=== PATIENT | male | born 1965 | race American Indian/Alaskan Native ===

== ENCOUNTER 2019-07-13 07:27 | Emergency (ER) | payer SELFPAY ==
[2019-07-13] MEDS ORDERED: dexAMETHasone 20 MG/5 ML VIAL IM ONE (08:35)
[2019-07-13] MEDS ORDERED: IPRATROPIUM 0.02% NEBU 2.5 ML IH ONE (08:35)
--- NOTE | 2019-07-13 08:54 | Emergency Department Report ---
- General Chief Complaint: Upper Respiratory Infection Stated Complaint: SOB/WHEEZING/PAGE/N Time Seen by Provider: 07/13/19 08:33 Source: patient Mode of arrival: Ambulatory Limitations: No Limitations - History of Present Illness Initial Comments: This is a 54-year-old male nontoxic, well nourished in appearance, no acute signs of distress presents to the ED with c/o of productive cough, wheezing, shortness of breath, rhinorrhea, nasal congestion x4 days. Patient describes productive cough as yellow mucus production. Patient denies any sick contact. Patient denies any calf pain or calf tenderness. Patient denies any chest pain, fever, chills, nausea, vomiting, hemoptysis, numbness, tingling, headache or stiff neck. Patient stated allergies to doxycycline with past medical history of hypertension. Patient stated he did not take his medication for about a week of his Norvasc but does have refills. MD Complaint: cough, rhinorrhea, nasal congestion, other (wheezing) -: days(s) (4) Severity: mild Improves With: nothing Worsens With: nothing Associated Symptoms: rhinorrhea, nasal congestion, cough, shortness of breath. denies: fever, chills, myalgias, diaphoresis, headache, sore throat, stiff neck, chest pain, abdominal pain, nausea, vomiting, diarrhea, dysuria, rash, confusion, right sweats, weight loss, epistaxis, hoarseness, ear pain Treatments Prior to Arrival: none - Related Data Home Medications Medication Instructions Recorded Confirmed Last Taken Atenolol [Tenormin] 25 mg PO BID 02/08/15 02/08/15 02/08/15 amLODIPine [Norvasc] 5 mg PO DAILY 02/08/15 02/08/15 02/08/15 Previous Rx's Medication Instructions Recorded Last Taken Type Acetaminophen/Codeine [Tylenol #3] 1 tab PO Q6H PRN #20 tab 02/08/15 Unknown Rx Indomethacin 50 mg PO Q8H #30 capsule 02/08/15 Unknown Rx predniSONE [Deltasone] 20 mg PO BID #6 tab 02/08/15 Unknown Rx ALBUTEROL Inhaler (OR & NICU) 2 puff IH QID PRN #8.5 gram 07/13/19 Unknown Rx [ProAir HFA Inhaler] Azithromycin [Zithromax Z-BRANDON] 250 mg PO DAILY #6 tablet 07/13/19 Unknown Rx Prednisone [predniSONE 10 mg 10 mg PO .TAPER #1 tab.ds.pk 07/13/19 Unknown Rx (6-Day Pack, 21 Tabs)] Allergies Allergy/AdvReac Type Severity Reaction Status Date / Time doxycycline Allergy Rash Verified 02/08/15 15:06 ED Review of Systems ROS: Stated complaint: SOB/WHEEZING/PAGE/N Other details as noted in HPI Constitutional: denies: chills, fever Eyes: denies: eye pain, eye discharge, vision change ENT: congestion. denies: ear pain, throat pain Respiratory: cough, shortness of breath, wheezing Cardiovascular: denies: chest pain, palpitations Endocrine: no symptoms reported Gastrointestinal: denies: abdominal pain, nausea, diarrhea Genitourinary: denies: urgency, dysuria Musculoskeletal: denies: back pain, joint swelling, arthralgia Skin: denies: rash, lesions Neurological: denies: headache, weakness, paresthesias Psychiatric: denies: anxiety, depression Hematological/Lymphatic: denies: easy bleeding, easy bruising ED Past Medical Hx - Past Medical History Previous Medical History?: Yes Hx Hypertension: Yes Additional medical history: gout - Surgical History Past Surgical History?: Yes Additional Surgical History: L knee surgery 89 - Social History Smoking Status: Never Smoker - Medications Home Medications: Home Medications Medication Instructions Recorded Confirmed Last Taken Type Acetaminophen/Codeine [Tylenol #3] 1 tab PO Q6H PRN #20 tab 02/08/15 Unknown Rx Atenolol [Tenormin] 25 mg PO BID 02/08/15 02/08/15 02/08/15 History Indomethacin 50 mg PO Q8H #30 capsule 02/08/15 Unknown Rx amLODIPine [Norvasc] 5 mg PO DAILY 02/08/15 02/08/15 02/08/15 History predniSONE [Deltasone] 20 mg PO BID #6 tab 02/08/15 Unknown Rx ALBUTEROL Inhaler (OR & NICU) 2 puff IH QID PRN #8.5 gram 07/13/19 Unknown Rx [ProAir HFA Inhaler] Azithromycin [Zithromax Z-BRANDON] 250 mg PO DAILY #6 tablet 07/13/19 Unknown Rx Prednisone [predniSONE 10 mg 10 mg PO .TAPER #1 tab.ds.pk 07/13/19 Unknown Rx (6-Day Pack, 21 Tabs)] ED Physical Exam - General Limitations: No Limitations General appearance: alert, in no apparent distress - Head Head exam: Present: atraumatic, normocephalic - Eye Eye exam: Present: normal appearance - Neck Neck exam: Present: normal inspection, full ROM. Absent: tenderness, meningismus, lymphadenopathy - Respiratory Respiratory exam: Present: wheezes. Absent: respiratory distress, rales, rhonchi, stridor, chest wall tenderness, accessory muscle use, decreased breath sounds, prolonged expiratory - Cardiovascular Cardiovascular Exam: Present: regular rate, normal rhythm, normal heart sounds. Absent: bradycardia, tachycardia, irregular rhythm, systolic murmur, diastolic murmur, rubs, gallop - Extremities Exam Extremities exam: Present: full ROM - Back Exam Back exam: Present: full ROM - Neurological Exam Neurological exam: Present: alert, oriented X3, normal gait - Psychiatric Psychiatric exam: Present: normal affect, normal mood - Skin Skin exam: Present: warm, dry, intact, normal color. Absent: rash ED Course Vital Signs 07/13/19 07/13/19 08:03 09:14 Temperature 98.5 F Pulse Rate 80 Respiratory 18 Rate Blood Pressure 169/96 O2 Sat by Pulse 94 Oximetry - Reevaluation(s) Reevaluation #1: 07/13/19 09:29 Patient is speaking in full sentences with no signs of distress noted. ED Medical Decision Making - Medical Decision Making This is a 54-year-old male that presents with PNA. Patient is stable and was examined by me. Chest x-ray has been obtained and dictated by radiologist with possible PNA. Due to worsening symptoms, will be discahregd with Zpak. Patient is notified of x-ray results with no questions noted. Wells criteria negative for PE. Patient received a breathing treatment in the ER and Decadron IM and symptoms has resolved. Wheezing has subsided. Vitals stable. Patient is nonfebrile and normal heart rate. Patient was instructed Follow-up with a primary care doctor in 3-5 days or if symptoms worsen and continue return to emergency room as soon as possible. At time time of discharge, the patient does not seem toxic or ill in appearance. No acute signs of distress noted. Patient agrees to discharge treatment plan of care. No further questions noted by the patient. - Differential Diagnosis PE, bronchitis, pneumonia Critical care attestation.: If time is entered above; I have spent that time in minutes in the direct care of this critically ill patient, excluding procedure time. ED Disposition Clinical Impression: PNA (pneumonia) Qualifiers: Pneumonia type: due to unspecified organism Laterality: unspecified laterality Lung location: unspecified part of lung Qualified Code(s): J18.9 - Pneumonia, unspecified organism Disposition: - TO HOME OR SELFCARE Is pt being admited?: No Does the pt Need Aspirin: No Condition: Stable Instructions: Bacterial Pneumonia (ED) Additional Instructions: Follow-up with a primary care doctor in 3-5 days or if symptoms worsen and continue return to emergency room as soon as possible. Prescriptions: Prednisone [predniSONE 10 mg (6-Day Pack, 21 Tabs)] 10 mg PO .TAPER #1 tab.ds.pk ALBUTEROL Inhaler (OR & NICU) [ProAir HFA Inhaler] 2 puff IH QID PRN #8.5 gram PRN Reason: Shortness Of Breath Azithromycin [Zithromax Z-BRANDON] 250 mg PO DAILY #6 tablet Referrals: PRIMARY CAREMD [Primary Care Provider] - 3-5 Days GABE COLON MD [Staff Physician] - 3-5 Days [facility] [Outside] - 3-5 Days [facility] [Outside] - 3-5 Days Forms: Work/School Release Form(ED)
[2019-07-13] MEDS: ALBUTEROL 2.5 MG/3 ML NEBU IH ONE ×2 (09:33→09:44)
--- NOTE | 2019-07-13 10:05 | XRay Report ---
CHEST 2 VIEWS INDICATION / CLINICAL INFORMATION: cough. COMPARISON: None available. FINDINGS: SUPPORT DEVICES: None. HEART / MEDIASTINUM: The heart is not enlarged. Mild tortuosity of the aorta. LUNGS / PLEURA: There is minimal airspace opacity in the left lung base. No pleural effusion. No pneu mothorax. ADDITIONAL FINDINGS: No significant additional findings. IMPRESSION: 1. Minimal left basilar pulmonary opacity may reflect atelectasis versus developing pneumonia in the appropriate clinical setting. Signer Name: Leeann Devries MD Signed: 07/13/2019 10:01 AM Workstation Name: [id number]
[2019-07-13 10:44] VITALS: BP 118/63
== END 2019-07-13 10:58 | disposition home or self-care (01) ==
LOC: ED 07:27
DX: J18.9 Pneumonia, unspecified organism (principal); I10 Essential (primary) hypertension
CPT/HCPCS: 71046; 96372; 99283; J1100